=== PATIENT | male | born 1975 | race Caucasian/White ===

== ENCOUNTER 2018-06-25 13:01 | Emergency (ER) | payer BC, OTHER ==
[~2018-06-25] VITALS: Ht 172.7 cm; Wt 90.7 kg
--- OUTSIDE RECORDS SUMMARY | 2018-06-25 13:07 | XMS REPORT ---
Author Author MITCH MEEKS [facility] Address [address] [place] [address] Care Team Providers Care Entry Level Programmer Name Role Phone MITCH MEEKS Unavailable PROBLEMS Type Condition ICD9-CM Code [id number] Code Onset Dates Condition Status SNOMED Code Problem Anxiety disorder, unspecified F41.9 Active 563467527 Problem Eating disorder F50.9 Active 86898544 Problem Type 2 diabetes mellitus without complication, without long-term current use of insulin E11.9 Active 023797178 Problem Bipolar affective disorder, depressed, severe, with psychotic behavior F31.5 Active 016007041 Problem Bipolar 1 disorder, mixed F31.60 Active 62168071 ALLERGIES No Information ENCOUNTERS Encounter Location Date Diagnosis [facility] [address] [id number] [id number] Jun, [place] [address] [facility] [address] [id number], [place] [id number] Jun, [facility] [address] [id number] [id number] Jun, [place] [address] [address] [facility] [address] [id number][place] [id number] Jun, [address] [id number][place] [id number] Jun, Eating disorder F50.9 and Bipolar affective disorder, depressed, severe, with psychotic behavior F31.5 [facility] [id number] [place] [id number]- [address]807 Jun, [facility] [address] [id number][place] [id number] Jun, Bipolar 1 disorder, mixed F31.60 [facility] [id number] [place] [address]- 8245 May, Bipolar affective disorder, depressed, severe, with psychotic behavior F31.5 ; Anxiety disorder, unspecified F41.9 and Eating disorder F50.9 [facility] [address] [facility] [address] [id number][place] [id number] May, Gastroenteritis K52.9 [facility] [address] [place] [id number] May, BMI 45.0-49.9, adult Z68.42 ; Bipolar 1 disorder, mixed F31.60 and Type 2 diabetes mellitus without complication, without long-term current use of insulin E11.9 [facility] [address] [facility] [address] [id number], [place] [id number] Apr, [facility] [address] [place] [address] [id number] Apr, [facility] [place] [id number] [place] [address] [id number] Apr, BMI 50.0-59.9, adult Z68.43 ; Type 2 diabetes mellitus without complication, without long-term current use of insulin E11.9 and Bipolar 1 disorder, mixed F31.60 [facility] [address] [place] [address] [id number] Apr, Bipolar 1 disorder, mixed F31.60 [facility] [address] [place] [address] [id number] Apr, BMI 50.0-59.9, adult Z68.43 ; Dehydration E86.0 and Bipolar 1 disorder, mixed F31.60 [facility] [address] [place] [address] [id number] Mar, BMI 50.0-59.9, adult Z68.43 ; Physical examination of employee Z02.89 ; Type 2 diabetes mellitus without complication, without long-term current use of insulin E11.9 and Chest discomfort R07.89 [facility] [id number] [place] [address]- 6901 Oct, [facility] [address] [address] Oct, [facility] [place] [facility] [address] [id number] [place] [address]- 9884 Feb, [facility] [place] [facility] [address] [id number] [place] [address] Feb, [facility] [place] [facility] [address] [id number] [place] [address]- 4043 Jan, [facility] [place] [facility] [address] [id number] [place] [address]- 1653 Jan, [facility] [place] [facility] [address] [id number] [place] [address]- 9872 Jan, [facility] [place] [facility] [address] [id number] [place] [address]- 4505 Jan, [facility] [place] [facility] [address] [id number] [place] [address]- 1468 Jan, [facility] [place] [facility] [address] [id number] [place] [address]- 8171 Jan, [facility] [place] [facility] [address] [id number] [place] [address]- 5315 Jan, [facility] [place] [facility] [address] [id number] [place] [address]- 1050 Jan, [facility] [place] [facility] [address] [id number] [place] [address]- 2471 Jan, [facility] [place] [facility] [address] [id number] [place] [address]- 7431 Jan, [facility] [place] [facility] [address] [id number] [place] [address]- 6511 Jan, [facility] [place] [facility] [address] [id number] [place] [address]- 7957 Jan, [facility] [place] [facility] [address] [id number] [place] [address]- 5921 Jan, [facility] [place] [facility] [address] [id number] [place] [address]- 8537 Dec, [facility] [place] [facility] [address] [id number] [place] [address]- 6540 Dec, [facility] [place] [facility] [address] [id number] [place] [address]- 5543 Dec, [facility] [place] [facility] [address] [id number] [place] [address]- 8973 Dec, [facility] [place] [facility] [address] [id number] [place] [address]- 3338 Aug, [facility] [place] [facility] [address] [id number] [place]- 3981 Aug, [facility] [place] [facility] [address] [id number] [place] [address]- 8909 Jul, [facility] [place] [facility] [address] [id number] [place] [address]- 6158 Jul, [facility] [place] [facility] [address] [id number] [place] [address]- 5023 Jun, [facility] [place] [facility] [address] [id number] [place] [address]- 8189 Jun, [facility] [place] [facility] [address] [id number] [place] [address]- 3378 May, [facility] [place] [facility] [address] [id number] [place] [address]- 1508 May, [facility] [place] [facility] [address] [id number] [place] [address]- 2545 Jan, [facility] [place] [facility] [address] [id number] [place] [address]- 3519 14 Dec, 2012 [facility] [place] [facility] [address] [id number] [place] [address]- 5247 07 Dec, 2012 [facility] [place] [facility] [address] [id number] [place] [address]- 9098 Dec, [facility] [address] [facility] [id number] [place] [address]- [address] Dec, [facility] [address] [facility] [id number] [place] [address]- 9741 November, [facility] [address] [facility] [id number] [place]- [address] Oct, IMMUNIZATIONS No Known Immunizations SOCIAL HISTORY Never Assessed REASON FOR VISIT Medication refill request PLAN OF CARE VITAL SIGNS MEDICATIONS Unknown Medications RESULTS No Results PROCEDURES No Known procedures INSTRUCTIONS MEDICATIONS ADMINISTERED No Known Medications MEDICAL (GENERAL) HISTORY Type Description Date Medical History type II diabetes Medical History hypertension Medical History hyperlipidemia Medical History bipolar disorder Medical History Eating disoder-Binge eats Medical History depression Medical History Dysmetabolic Syndrome X Medical History Other testicular hypofunction Medical History Generalized hyperhidrosis Medical History Decreased libido Medical History Essential hypertension, benign Medical History Unspecified sleep apnea Medical History Morbid obesity Medical History Elevated blood pressure reading without diagnosis of hypertension Surgical History appendectomy 2010 Surgical History right ankle orthoscopy 1993 Surgical History stress test /heart cath ( clr per pt) 2016 Hospitalization History surgeries Hospitalization History Eating disorder-treatment center
--- OUTSIDE RECORDS SUMMARY | 2018-06-25 13:07 | XMS REPORT ---
Author Author OBED ACEVES Organization [facility] Address [address] [place] [address] Care Team Providers Care Band Cutter Name Role Phone OBED ACEVES Unavailable PROBLEMS Type Condition ICD9-CM Code TBJ66-IC Code Onset Dates Condition Status SNOMED Code Problem Anxiety disorder, unspecified F41.9 Active 686218992 Problem Eating disorder F50.9 Active 38947306 Problem Type 2 diabetes mellitus without complication, without long-term current use of insulin E11.9 Active 466231233 Problem Bipolar affective disorder, depressed, severe, with psychotic behavior F31.5 Active 580964621 Problem Bipolar 1 disorder, mixed F31.60 Active 35151782 ALLERGIES No Information ENCOUNTERS Encounter Location Date Diagnosis [facility] [address] [address] [id number] [place] [id number] Jun, [facility] [id number] [place] [address] [id number] Jun, [facility] [id number], [place] [id number] Jun, Bipolar 1 disorder, mixed F31.60 [facility] [address]005[address] [id number] Jun, [facility] [id number] [place] [address] Jun, [facility] [id number] [place] [id number] Jun, Eating disorder F50.9 and Bipolar affective disorder, depressed, severe, with psychotic behavior F31.5 [facility] [address] [id number] [address]- 1416 Jun, [id number] [place] [address] [id number] Jun, Bipolar 1 disorder, mixed F31.60 [facility] [address] [place] [address] [id number] May, Bipolar affective disorder, depressed, severe, with psychotic behavior F31.5 ; Anxiety disorder, unspecified F41.9 and Eating disorder F50.9 [facility] [address] [facility] [id number] [place] [id number] May, Gastroenteritis K52.9 [facility] [place] [id number] [place] [address] [id number] May, BMI 45.0-49.9, adult Z68.42 ; Bipolar 1 disorder, mixed F31.60 and Type 2 diabetes mellitus without complication, without long-term current use of insulin E11.9 [facility] [address] [facility] [id number] [place] [id number] Apr, [facility] [place] [id number] [place] [address] [id number] Apr, [facility] [place] [id number] [place] [address] [id number] Apr, BMI 50.0-59.9, adult Z68.43 ; Type 2 diabetes mellitus without complication, without long-term current use of insulin E11.9 and Bipolar 1 disorder, mixed F31.60 [address] [place] [address] [id number] Apr, Bipolar 1 disorder, mixed F31.60 [facility] [place] [address] [place] [address] [id number] Apr, BMI 50.0-59.9, adult Z68.43 ; Dehydration E86.0 and Bipolar 1 disorder, mixed F31.60 [facility] [place] [address] [id number] Mar, BMI 50.0-59.9, adult Z68.43 ; Physical examination of employee Z02.89 ; Type 2 diabetes mellitus without complication, without long-term current use of insulin E11.9 and Chest discomfort R07.89 [facility] [address] [id number] [place] [address]- 6[address] 14 Oct, 2014 [facility] [place] [facility] [address] [id number] [place] [address]- 4835 Oct, [facility] [place] [facility] [address] [id number] [place] [address]- 7396 Feb, [facility] [place] [facility] [address] [id number] [place] [address]- 1320 Feb, [facility] [place] [facility] [address] [id number] [place] [address]- 3750 Jan, [facility] [place] [facility] [address] [id number] [place] [address]- 2036 Jan, [facility] [place] [facility] [address] [id number] [place] [address]- 4575 Jan, [facility] [place] [facility] [address] [id number] [place] [address]- 0357 Jan, [facility] [place] [facility] [address] [id number] [place] [address]- 6377 Jan, [facility] [place] [facility] [address] [id number] [place] [address]- 0849 Jan, [facility] [place] [facility] [address] [id number] [place] [address]- 5604 Jan, [facility] [place] [facility] [address] [id number] [place] [address]- 7134 Jan, [facility] [place] [facility] [address] [id number] [place] [address]- 9026 Jan, [facility] [place] [facility] [address] [id number] [place] [address]- 0324 Jan, [facility] [place] [facility] [address] [id number] [place] [address]- 6613 Jan, [facility] [place] [facility] [address] [id number] [place] 9575 Jan, [facility] [place] [facility] [address] [id number] [place] [address]- 4913 Jan, [facility] [place] [facility] [address] [id number] [place] [address]- 9572 Dec, [facility] [place] [facility] [address] [id number] [place] [address]- 3506 Dec, [facility] [place] [facility] [address] [id number] [place] [address]- 2091 Dec, [facility] [place] [facility] [address] [id number] [place] [address]- 6940 Dec, [facility] [place] [facility] [address] [id number] [place] [address]- 8735 Aug, [facility] [place] [facility] [address] [id number] [place] [address]- 8175 Aug, [facility] [place] [facility] [address] [id number] [place] [address]- 2228 Jul, [facility] [place] [facility] [address] [id number] [place] [address]- 6659 Jul, [facility] [place] [facility] [address] [id number] [place] [address]- 5680 Jun, [facility] [place] [facility] [address] [id number] [place] [address]- 4844 Jun, [facility] [place] [facility] [address] [id number] [place] [address]- 8244 May, [facility] [place] [facility] [address] [id number] [place] [address]- 2055 May, [facility] [place] [facility] [address] [id number] [place] [address]- 7911 Jan, [facility] [place] [facility] [address] [id number] [place] [address]- 3229 Dec, [facility] [place] [facility] [address] [id number] [place] [address]- 2546 Dec, [facility] [address] [facility] [id number] [place] [address]- 2546 Dec, [facility] [address] [facility] [id number] [place] [address]- 2546 Dec, [facility] [address] [facility] [id number] [place] [address]- 2546 November, [facility] [address] [facility] [id number] [place] [address]- 2546 Oct, IMMUNIZATIONS No Known Immunizations SOCIAL HISTORY Never Assessed REASON FOR VISIT Intake PLAN OF CARE Activity Details Follow Up 1 Week Reason: Follow-up VITAL SIGNS MEDICATIONS Medication Instructions Dosage Frequency Start Date End Date Duration Status Seroquel 25 MG Orally at bedtime 1 tablet May, 30 day(s) Active [place] Carbonate 150 MG Orally Once a day at HS 4 capsule Active Probiotic - as directed Active Sertraline HCl 100 MG Orally Once a day 0.5 tablet 24h Apr, Active Trulicity 0.75 MG/0.5ML Subcutaneous once weekly as directed Apr, Active Synjardy XR 10-1000 MG Orally Once a day 1 tablet with breakfast 24h 30 day(s) Active RESULTS No Results PROCEDURES Procedure Date Ordered Result Body Site Psychotherapy, patient &/family, with E&M, 30 minutes, new patient Jun 13, 2018 INSTRUCTIONS MEDICATIONS ADMINISTERED No Known Medications MEDICAL [...]
--- OUTSIDE RECORDS SUMMARY | 2018-06-25 13:07 | XMS REPORT ---
Author Author ELIZABETH COE Organization [facility] Address [address] [place] [address] Care Team Providers Care Travelift Operator Name Role Phone ELIZABETH COE Unavailable PROBLEMS Type Condition ICD9-CM Code [id number] Code Onset Dates Condition Status SNOMED Code Problem Anxiety disorder, unspecified F41.9 Active 642590498 Problem Eating disorder F50.9 Active 60825699 Problem Type 2 diabetes mellitus without complication, without long-term current use of insulin E11.9 Active 009378230 Problem Bipolar affective disorder, depressed, severe, with psychotic behavior F31.5 Active 308653091 Problem Bipolar 1 disorder, mixed F31.60 Active 81590639 ALLERGIES No Information ENCOUNTERS Encounter Location Date Diagnosis [facility] [employer] [facility] [id number], [place] [id number] Jun, [id number] [place] [address] [id number] Jun, [facility] [address] [id number] [address]- 1615 May, Bipolar affective disorder, depressed, severe, with psychotic behavior F31.5 ; Anxiety disorder, unspecified F41.9 and Eating disorder F50.9 [place] [address] [facility] [id number], [place] [id number] May, Gastroenteritis K52.[address] [id number] [place] [address] May, BMI 45.0-49.9, adult Z68.42 ; Bipolar 1 disorder, mixed F31.60 and Type 2 diabetes mellitus without complication, without long-term current use of insulin E11.9 [facility] [address] [facility] [id number], [place] [id number] Apr, [address] [place] [id number] [id number] Apr, [facility] [place] [address] [place] [address] [id number] [address] Apr, BMI 50.0-59.9, adult Z68.43 ; Type 2 diabetes mellitus without complication, without long-term current use of insulin E11.9 and Bipolar 1 disorder, mixed F31.60 [facility] [id number] [place] [address] [id number] Apr, Bipolar 1 disorder, mixed F31.60 [facility] [id number] [place] [address] [id number] Apr, BMI 50.0-59.9, adult Z68.43 ; Dehydration E86.0 and Bipolar 1 disorder, mixed F31.60 [facility] [id number] [place] [address] [id number] Mar, BMI 50.0-59.9, adult Z68.43 ; Physical examination of employee Z02.89 ; Type 2 diabetes mellitus without complication, without long-term current use of insulin E11.9 and Chest discomfort R07.89 [facility] [id number] [place] [address] 05537- 9052 Oct, [facility] [id number] [place] [address] 37739- 7323 Oct, [facility] [id number] [place] [address] 87080- 4687 Feb, [facility] [id number] [place] [address] 48160- 4788 Feb, [facility] [id number] [place] [address] 177431- 4459 Jan, [facility] [address] 605217- 9976 Jan, [facility] [id number] [place] [address] 27783- 7418 Jan, [facility] [address] [facility] [place] [address]- 9994 Jan, [facility] [place] [facility] [address] [id number] [place] [address]- 0520 Jan, [facility] [place] [facility] [address] [id number] [place] [address]- 0186 Jan, [facility] [place] [facility] [address] [id number] [place] [address]- 5073 Jan, [facility] [place] [facility] [address] [id number] [place] [address]- 4889 Jan, [facility] [place] [facility] [address] [id number] [place] [address]- 3764 Jan, [facility] [place] [facility] [address] [id number] [place] [address]- 3496 Jan, [facility] [place] [facility] [address] [id number] [place] [address]- 0979 Jan, [facility] [place] [facility] [address] [id number] [place] [address]- 9090 Jan, [facility] [place] [facility] [address] [id number] [place] [address]- 1220 Jan, [facility] [place] [facility] [address] [id number] [place] [address]- 5653 Dec, [facility] [place] [facility] [address] [id number] [place] [address]- 8632 Dec, [facility] [place] [facility] [address] [id number] [place] [address]- 2274 Dec, [facility] [place] [facility] [address] [id number] [place] [address]- 9289 Dec, [facility] [place] [facility] [address] [id number] [place] [address]- 3371 Aug, [facility] [place] [facility] [address] [id number] [place] [address]- 1042 Aug, [facility] [address] [id number], [place] [address]- 5411 Jul, [facility] [address]00565100[place], [place] [address]- 9266 Jul, [facility] [address] [id number], [place] [address]- 2087 Jun, [facility] [address]00565100[place], [place] [address]- 5524 Jun, [facility] [address]- 4458 May, [facility] [address]00565100[place]- 2058 May, [facility] [address]65100[place], [place] [address]- 6725 Jan, [facility] [address]65100[place], [place] [address]- 4601 Dec, [facility] [address]65100[place]- 6554 Dec, [facility] [address]65100[place], [place] [address]- 0922 Dec, [facility] [address] [id number] [address] Dec, [facility] [id number] [address] November, [facility] [id number] [id number] Oct, IMMUNIZATIONS No Known Immunizations SOCIAL HISTORY Never Assessed REASON FOR VISIT Intake PLAN OF CARE Activity Details Follow Up referred to [facility] Reason: VITAL SIGNS MEDICATIONS Medication Instructions Dosage Frequency Start Date End Date Duration Status Seroquel 25 MG Orally at bedtime 1 tablet May, 30 day(s) Active Trulicity 0.75 MG/0.5ML Subcutaneous once weekly as directed Apr, Active Probiotic - as directed Active Sertraline HCl 100 MG Orally Once a day 0.5 tablet 24h Apr, Active Dunlo Carbonate 150 MG Orally Once a day at HS 4 capsule Active Synjardy XR 10-1000 MG Orally Once a day 1 tablet with breakfast 24h 30 day(s) Active RESULTS No Results PROCEDURES Procedure Date Ordered Result Body Site Psych diagnostic evaluation, established patient Jun 07, 2018 INSTRUCTIONS MEDICATIONS ADMINISTERED No Known Medications [...]
--- OUTSIDE RECORDS SUMMARY | 2018-06-25 13:07 | XMS REPORT ---
Author Author MITCH MEEKS [facility] Address [address] [place] [address] Care Team Providers Care Tunnel Elastic Operator Zigzag Name Role Phone MITCH MEEKS Unavailable PROBLEMS Type Condition ICD9-CM Code [id number] Code Onset Dates Condition Status SNOMED Code Problem Anxiety disorder, unspecified F41.9 Active 450653659 Problem Eating disorder F50.9 Active 40331466 Problem Type 2 diabetes mellitus without complication, without long-term current use of insulin E11.9 Active 605576057 Problem Bipolar affective disorder, depressed, severe, with psychotic behavior F31.5 Active 525312597 Problem Bipolar 1 disorder, mixed F31.60 Active [id number] ALLERGIES No Information ENCOUNTERS Encounter Location Date Diagnosis [facility] [address] [id number] [place] [id number] Jun, [address] [address] [address] [facility] [address] [id number] [place] [id number] Jun, [facility] [address] [id number] [id number] Jun, [address] [address] [facility] [address] [id number] [place] [id number] Jun, [address] [id number] [place] [id number] Jun, Eating disorder F50.9 and Bipolar affective disorder, depressed, severe, with psychotic behavior F31.5 [facility] [address] [place] [id number]- 3982 Jun, [facility] [address] [id number] [place] [id number] Jun, Bipolar 1 disorder, mixed F31.60 [facility] [id number] [place] [address]- 5964 May, Bipolar affective disorder, depressed, severe, with psychotic behavior F31.5 ; Anxiety disorder, unspecified F41.9 and Eating disorder F50.9 [facility] [address] [facility] [address] [id number] [place] [id number] May, Gastroenteritis K52.9 [facility] [address] [place] [address] [id number] May, BMI 45.0-49.9, adult Z68.42 ; Bipolar 1 disorder, mixed F31.60 and Type 2 diabetes mellitus without complication, without long-term current use of insulin E11.9 [facility] [address] [facility] [address] [id number] [place] [id number] Apr, [facility] [address] [place] [id number] Apr, [facility] [place] [id number] [place] [id number] Apr, BMI 50.0-59.9, adult Z68.43 ; Type 2 diabetes mellitus without complication, without long-term current use of insulin E11.9 and Bipolar 1 disorder, mixed F31.60 [facility] [address] [place] [address] [id number] Apr, Bipolar 1 disorder, mixed F31.60 [facility] [address] [place] [address] [id number] Apr, BMI 50.0-59.9, adult Z68.43 ; Dehydration E86.0 and Bipolar 1 disorder, mixed F31.60 [facility] [address] [place] [address] [id number] Mar, BMI 50.0-59.9, adult Z68.43 ; Physical examination of employee Z02.89 ; Type 2 diabetes mellitus without complication, without long-term current use of insulin E11.9 and Chest discomfort R07.89 [facility] [id number] [place] [address]- 5617 Oct, [facility] [address] [address] Oct, [facility] [place] [facility] [address] [id number] [place] [address] Feb, [facility] [place] [facility] [address] [id number] [place] [address] Feb, [facility] [place] [facility] [address] [id number] [place] [address]- 4184 Jan, [facility] [place] [facility] [address] [id number] [place] [address]- 7556 Jan, [facility] [place] [facility] [address] [id number] [place] [address]- 4168 Jan, [facility] [place] [facility] [address] [id number] [place] [address]- 4665 Jan, [facility] [place] [facility] [address] [id number] [place] [address]- 3105 Jan, [facility] [place] [facility] [address] [id number] [place] [address]- 4294 Jan, [facility] [place] [facility] [address] [id number] [place] [address]- 1817 Jan, [facility] [place] [facility] [address] [id number] [place] [address]- 5451 Jan, [facility] [place] [facility] [address] [id number] [place] [address]- 0587 Jan, [facility] [place] [facility] [address] [id number] [place] [address]- 1129 Jan, [facility] [place] [facility] [address] [id number] [place] [address]- 4768 Jan, [facility] [place] [facility] [address] [id number] [place] [address]- 7177 Jan, [facility] [place] [facility] [address] [id number] [place] [address]- 1088 Jan, [facility] [place] [facility] [address] [id number] [place] [address]- 0938 Dec, [facility] [place] [facility] [address] [id number] [place] [address]- 3088 Dec, [facility] [place] [facility] [address] [id number] [place] [address]- 8185 Dec, [facility] [place] [facility] [address] [id number] [place] [address]- 4266 Dec, [facility] [place] [facility] [address] [id number] [place] [address]- 4683 Aug, [facility] [place] [facility] [address] [id number] [place] [address] Aug, [facility] [place] [facility] [address] [id number] [place] [address]- 3663 Jul, [facility] [place] [facility] [address] [id number] [place] [address]- 4631 Jul, [facility] [place] [facility] [address] [id number] [place] [address]- 5773 Jun, [facility] [place] [facility] [address] [id number] [place] [address]- 1844 Jun, [facility] [place] [facility] [address] [id number] [place] [address]- 9107 May, [facility] [place] [facility] [address] [id number] [place] [address]- 9451 May, [facility] [place] [facility] [address] [id number] [place] [address]- 2542 Jan, [facility] [place] [facility] [address] [id number] [place] [address]- 3960 14 Dec, 2012 [facility] [place] [facility] [address] [id number] [place] [address]- 2897 07 Dec, 2012 [facility] [place] [facility] [address] [id number] [place] [address]- 9021 Dec, [facility] [address] [facility] [id number] [place] [address]- 6[address] Dec, [facility] [address] [facility] [id number] [place] [address]- 3066 November, [facility] [address] [facility] [id number] [place] [address]- 49[address] Oct, IMMUNIZATIONS No Known Immunizations SOCIAL HISTORY Never Assessed REASON FOR VISIT Medication refill PLAN OF CARE VITAL SIGNS MEDICATIONS Medication Instructions Dosage Frequency Start Date End Date Duration Status Trulicity 0.75 MG/0.5ML Subcutaneous once weekly as directed Apr, Active RESULTS No Results PROCEDURES No Known procedures [...]
--- OUTSIDE RECORDS SUMMARY | 2018-06-25 13:07 | XMS REPORT ---
Author Author MITCH MEEKS [facility] Address [address] [place] [address] Care Team Providers Care Seismic Interpreter Name Role Phone MITCH MEEKS Unavailable PROBLEMS Type Condition ICD9-CM Code [id number] Code Onset Dates Condition Status SNOMED Code Problem Anxiety disorder, unspecified F41.9 Active 468364340 Problem Eating disorder F50.9 Active 63803991 Problem Type 2 diabetes mellitus without complication, without long-term current use of insulin E11.9 Active 800558192 Problem Bipolar affective disorder, depressed, severe, with psychotic behavior F31.5 Active 937495970 Problem Bipolar 1 disorder, mixed F31.60 Active 35193743 ALLERGIES No Information ENCOUNTERS Encounter Location Date Diagnosis [facility] [address] [id number] [id number] Jun, [facility] [id number] [place] [id number] Jun, [address] [place] [id number] Jun, Bipolar 1 disorder, mixed F31.60 [facility] [address] [id number] Jun, [facility] [address] [id number] [id number] Jun, [facility] [address] [id number], [place] [id number] Jun, Eating disorder F50.9 and Bipolar affective disorder, depressed, severe, with psychotic behavior F31.5 [facility] [address] [address] [id number] [id number] Jun, [facility] [id number] [place] [address] [id number] Jun, Bipolar 1 disorder, mixed F31.60 [facility] [address] [place] [address]- 4763 May, Bipolar affective disorder, depressed, severe, with psychotic behavior F31.5 ; Anxiety disorder, unspecified F41.9 and Eating disorder F50.9 [facility] [address] [id number] May, Gastroenteritis K52.9 [facility] [place] [id number] [place] [address] [id number] May, BMI 45.0-49.9, adult Z68.42 ; Bipolar 1 disorder, mixed F31.60 and Type 2 diabetes mellitus without complication, without long-term current use of insulin E11.9 [facility] [address] [id number] Apr, [facility] [place] [id number] [place] [address] [id number] Apr, [facility] [place] [id number] [place] [address] [id number] Apr, BMI 50.0-59.9, adult Z68.43 ; Type 2 diabetes mellitus without complication, without long-term current use of insulin E11.9 and Bipolar 1 disorder, mixed F31.60 [facility] [place] [address] [id number] [place] [address] [id number] Apr, Bipolar 1 disorder, mixed F31.60 [facility] [address] [place] [address] [id number] Apr, BMI 50.0-59.9, adult Z68.43 ; Dehydration E86.0 and Bipolar 1 disorder, mixed F31.60 [facility] [place] [id number] [place] [address] [id number] Mar, BMI 50.0-59.9, adult Z68.43 ; Physical examination of employee Z02.89 ; Type 2 diabetes mellitus without complication, without long-term current use of insulin E11.9 and Chest discomfort R07.89 [facility] [id number] [place] [address]- 9474 Oct, [facility] [place] [facility] [address] [id number] [place] [address]- 9213 Oct, [facility] [place] [facility] [address] [id number] [place] [address]- 4966 Feb, [facility] [place] [facility] [address] [id number] [place] [address]- 4795 Feb, [facility] [place] [facility] [address] [id number] [place] [address]- 1029 Jan, [facility] [place] [facility] [address] [id number] [place] [address]- 1289 Jan, [facility] [place] [facility] [address] [id number] [place] [address]- 7606 Jan, [facility] [place] [facility] [address] [id number] [place] [address]- 9858 Jan, [facility] [place] [facility] [address] [id number] [place] [address]- 7421 Jan, [facility] [place] [facility] [address] [id number] [place] [address]- 6116 Jan, [facility] [place] [facility] [address] [id number] [place] [address]- 5391 Jan, [facility] [place] [facility] [address] [id number] [place] [address]- 4724 Jan, [facility] [place] [facility] [address] [id number] [place] [address]- 7058 Jan, [facility] [place] [facility] [address] [id number] [place] [address]- 4932 Jan, [facility] [place] [facility] [address] [id number] [place] [address]- 1469 Jan, [facility] [place] [facility] [address] [id number] [place] [address]- 9568 Jan, [facility] [place] [facility] [address] [id number] [place] [address]- 5930 Jan, [facility] [place] [facility] [address] [id number] [place] [address]- 8940 Dec, [facility] [place] [facility] [address] [id number] [place] [address]- 2089 Dec, [facility] [place] [facility] [address] [id number] [place] [address]- 0962 Dec, [facility] [place] [facility] [address] [id number] [place] [address]- 9629 Dec, [facility] [place] [facility] [address] [id number] [place] [address]- 6693 Aug, [facility] [place] [facility] [address] [id number] [place] [address]- 8001 Aug, [facility] [place] [facility] [address] [id number] [place] [address]- 7847 Jul, [facility] [place] [facility] [address] [id number] [place] [address]- 9954 Jul, [facility] [place] [facility] [address] [id number] [place] [address]- 1123 Jun, [facility] [place] [facility] [address] [id number] [place] [address]- 2509 Jun, [facility] [place] [facility] [address] [id number] [place] [address]- 3104 May, [facility] [place] [facility] [address] [id number] [place] [address]- 7332 May, [facility] [place] [facility] [address] [id number] [place] [address]- 8078 Jan, [facility] [place] [facility] [address] [id number] [place] [address]- 4280 Dec, [facility] [place] [facility] [address] [id number] [place] [address]- 0012 Dec, [facility] [address] [facility] [id number] [place] [address]- 2546 Dec, [facility] [address] [facility] [id number] [address]- 2546 Dec, [facility] [address] [facility] [id number] [address]- 2546 November, [facility] [address] [facility] [id number] [address]- 2546 Oct, IMMUNIZATIONS No Known Immunizations SOCIAL HISTORY Never Assessed REASON FOR VISIT med refill PLAN OF CARE VITAL SIGNS MEDICATIONS Medication Instructions Dosage Frequency Start Date End Date Duration Status Sertraline HCl 100 mg Orally Once a day 0.5 tablet 24h Apr, 30 days Active RESULTS No Results PROCEDURES No Known [...]
--- OUTSIDE RECORDS SUMMARY | 2018-06-25 13:07 | XMS REPORT ---
Author Author MITCH MEEKS [facility] Address [address] [place] [address] Care Team Providers Care Harmonic Analyst Name Role Phone MITCH MEEKS Unavailable PROBLEMS Type Condition ICD9-CM Code GNI68-DL Code Onset Dates Condition Status SNOMED Code Problem Anxiety disorder, unspecified F41.9 Active 600583010 Problem Eating disorder F50.9 Active 87225683 Problem Type 2 diabetes mellitus without complication, without long-term current use of insulin E11.9 Active 930923302 Problem Bipolar affective disorder, depressed, severe, with psychotic behavior F31.5 Active 011641484 Problem Bipolar 1 disorder, mixed F31.60 Active 68811606 ALLERGIES No Information ENCOUNTERS Encounter Location Date Diagnosis [facility] [address] [id number], [place] [id number] Jun, [place] [address] [address] [facility] [address] [id number], [place] [id number] Jun, [facility] [address] [id number], [place] [id number] Jun, [place] [address] [facility] [address] [id number], [place] [id number] Jun, [address] [address] [address] [id number], [place] [id number] Jun, Eating disorder F50.9 and Bipolar affective disorder, depressed, severe, with psychotic behavior F31.5 [facility] [address] [place] [id number]- 6318 Jun, [facility] [address] [id number], [place] [id number] Jun, Bipolar 1 disorder, mixed F31.60 [facility] [id number] [place] [address]- 9217 May, Bipolar affective disorder, depressed, severe, with psychotic behavior F31.5 ; Anxiety disorder, unspecified F41.9 and Eating disorder F50.9 [facility] [address] [facility] [address] [id number], [place] [id number] May, Gastroenteritis K52.9 [facility] [address] [place] [address] [id number] May, BMI 45.0-49.9, adult Z68.42 ; Bipolar 1 disorder, mixed F31.60 and Type 2 diabetes mellitus without complication, without long-term current use of insulin E11.9 [facility] [address] [facility] [address] [id number], [place] [id number] Apr, [facility] [address] [place] [address] [id number] Apr, [facility] [address] [id number] [place] [address] [id number] Apr, BMI 50.0-59.9, adult Z68.43 ; Type 2 diabetes mellitus without complication, without long-term current use of insulin E11.9 and Bipolar 1 disorder, mixed F31.60 [facility] [address] [place] [address] [id number] Apr, Bipolar 1 disorder, mixed F31.60 [facility] [address] [place] [address] [id number] Apr, BMI 50.0-59.9, adult Z68.43 ; Dehydration E86.0 and Bipolar 1 disorder, mixed F31.60 [facility] [address] [place] [address] [id number] Mar, BMI 50.0-59.9, adult Z68.43 ; Physical examination of employee Z02.89 ; Type 2 diabetes mellitus without complication, without long-term current use of insulin E11.9 and Chest discomfort R07.89 [facility] [id number] [place] [address] 450[address]- 3097 Oct, [facility] [address] [address]- 6774 Oct, [facility] [place] [facility] [address] [id number] [place] [address]- 0107 Feb, [facility] [place] [facility] [address] [id number] [place] 8[address] Feb, [facility] [place] [facility] [address] [id number] [place] [address]- 7984 Jan, [facility] [place] [facility] [address] [id number] [place] [address]- 8366 Jan, [facility] [place] [facility] [address] [id number] [place] [address]- 7319 Jan, [facility] [place] [facility] [address] [id number] [place] [address]- 0148 Jan, [facility] [place] [facility] [address] [id number] [place] [address]- 0403 Jan, [facility] [place] [facility] [address] [id number] [place] [address]- 2602 Jan, [facility] [place] [facility] [address] [id number] [place] [address]- 3355 Jan, [facility] [place] [facility] [address] [id number] [place] [address]- 6128 Jan, [facility] [place] [facility] [address] [id number] [place] [address]- 8481 Jan, [facility] [place] [facility] [address] [id number] [place] [address]- 8185 Jan, [facility] [place] [facility] [address] [id number] [place] [address]- 9531 Jan, [facility] [place] [facility] [address] [id number] [place] [address]- 0472 Jan, [facility] [place] [facility] [address] [id number] [place] [address]- 3265 Jan, [facility] [place] [facility] [address] [id number] [place] [address]- 2221 Dec, [facility] [place] [facility] [address] [id number] [place] [address]- 7564 Dec, [facility] [place] [facility] [address] [id number] [place] [address]- 2025 Dec, [facility] [place] [facility] [address] [id number] [place] [address]- 2222 Dec, [facility] [place] [facility] [address] [id number] [place] [address]- 8004 Aug, [facility] [place] [facility] [address] [id number] [place]- 3161 Aug, [facility] [place] [facility] [address] [id number] [place] [address]- 1652 Jul, [facility] [place] [facility] [address] [id number] [place] [address]- 9406 Jul, [facility] [place] [facility] [address] [id number] [place] [address]- 1875 Jun, [facility] [place] [facility] [address] [id number] [place] [address]- 4596 Jun, [facility] [place] [facility] [address] [id number] [place] [address]- 0429 May, [facility] [place] [facility] [address] [id number] [place] [address]- 0984 May, [facility] [place] [facility] [address] [id number] [place] [address]- 254 Jan, [facility] [place] [facility] [address] [id number] [place] [address]- 3158 14 Dec, 2012 [facility] [place] [facility] [address] [id number] [place] [address]- 0802 07 Dec, 2012 [facility] [place] [facility] [address] [id number] [place] [address]- 5421 Dec, [facility] [address] [facility] [id number] [place] [address]- 1068 Dec, [facility] [address] [facility] [id number] [place] [address]- 8551 November, [facility] [address] [facility] [id number] [place] [address]- 0050 Oct, IMMUNIZATIONS No Known Immunizations SOCIAL HISTORY Never Assessed REASON FOR VISIT PLAN OF CARE VITAL SIGNS MEDICATIONS Unknown [...]
--- OUTSIDE RECORDS SUMMARY | 2018-06-25 13:08 | XMS REPORT ---
Author Author MITCH MEEKS [facility] Address [address] [place] [address] Care Team Providers Care Reporting Lead Name Role Phone MITCH MEEKS Unavailable PROBLEMS Type Condition ICD9-CM Code PZC48-IS Code Onset Dates Condition Status SNOMED Code Problem Bipolar 1 disorder, mixed F31.60 Active 68530953 Problem Type 2 diabetes mellitus without complication, without long-term current use of insulin E11.9 Active [id number] ALLERGIES No Information ENCOUNTERS Encounter Location Date Diagnosis [id number] [place] [id number] Apr, [address] [id number] Apr, Bipolar 1 disorder, mixed F31.60 [place] [id number] [place] [id number] Apr, BMI 50.0-59.9, adult Z68.43 ; Dehydration E86.0 and Bipolar 1 disorder, mixed F31.60 [id number] [place] [id number] Mar, BMI 50.0-59.9, adult Z68.43 ; Physical examination of employee Z02.89 ; Type 2 diabetes mellitus without complication, without long-term current use of insulin E11.9 and Chest discomfort R07.89 [address] [address] [id number] [place] [address] Oct, [place] [address] [address] Oct, [place] [address] [address] Feb, [place] [address] [address] Feb, [facility] [place] [facility] [address] [id number] [place] [address] Jan, [facility] [place] [facility] [address] [id number] [place] [address] Jan, [facility] [place] [facility] [address] [id number] [place] [address] Jan, [facility] [place] [facility] [address] [id number] [place] [address] Jan, [facility] [place] [facility] [address] [id number] [place] [address] Jan, [facility] [place] [facility] [address] [id number] [place] [address] 3[address] Jan, [facility] [place] [facility] [address] [id number] [place] [address] 3[address] Jan, [facility] [place] [facility] [address] [id number] [place] [address] Jan, [facility] [place] [facility] [address] [id number] [place] [address] 8587 Jan, [facility] [place] [facility] [address] [id number] [place] [address]- 8682 Jan, [facility] [place] [facility] [address] [id number] [place] [address] 0204 Jan, [facility] [place] [facility] [address] [id number] [place] [address] 2668 Jan, [facility] [place] [facility] [address] [id number] [place] [address]- 6580 Jan, [facility] [place] [facility] [address] [id number] [place] [address]- 8838 Dec, [facility] [place] [facility] [address] [id number] [place] [address] Dec, [facility] [place] [facility] [address] [id number] [place] [address]- 6367 Dec, [facility] [address] [id number] [place] [address]- 95[address] Dec, [facility] [place] [facility] [address] [id number] [place] [address] 9930 Aug, [facility] [place] [facility] [address] [id number] [place] [address]- 5566 Aug, [facility] [place] [facility] [address] [id number] [place] [address]- 6263 Jul, [facility] [place] [facility] [address] [id number] [place] [address]- 1748 Jul, [facility] [place] [facility] [address] [id number] [place] [address]- 1479 Jun, [facility] [place] [facility] [address] [id number] [place] [address]- 457[address] Jun, [facility] [place] [facility] [address] [id number] [place] [address]- 3085 May, [facility] [place] [facility] [address] [id number] [place] [address]- 8757 May, [facility] [place] [facility] [address] [id number] [place] [address]- 4658 Jan, [facility] [place] [facility] [address] [id number] [place] [address]- 4855 Dec, [facility] [place] [facility] [address] [id number] [place] [address]- 3504 Dec, [facility] [place] [facility] [address] [id number] [place] [address]- 0333 Dec, [facility] [place] [facility] [address] [id number] [place] [address]- 1780 Dec, [facility] [place] [facility] [address] [id number] [place] [address]- 44[address] November, [facility] [address] [facility] [id number] [place] [address] Oct, IMMUNIZATIONS No Known Immunizations SOCIAL HISTORY Never Assessed REASON FOR VISIT phone call PLAN OF CARE VITAL SIGNS MEDICATIONS Medication Instructions Dosage Frequency Start Date End Date Duration Status [place] Carbonate 150 MG Orally Once a day at HS 4 capsule Active Trulicity 0.75 MG/0.5ML Subcutaneous once weekly [...]
--- OUTSIDE RECORDS SUMMARY | 2018-06-25 13:08 | XMS REPORT | Continuity of Care Document ---
Author Author [facility] Address Unknown Phone Unavailable Allergies There is no data. Medications There is no data. Problems Date Dx Coded Attending Type Code Diagnosis Diagnosed By 11/05/2012 278.00 OBESITY 11/05/2012 784.0 headache 11/05/2012 799.81 changed sexual interest (libido): decreased 11/05/2012 278.00 OBESITY 11/05/2012 784.0 headache 11/05/2012 799.81 changed sexual interest (libido): decreased 11/05/2012 278.00 OBESITY 11/05/2012 784.0 headache 11/05/2012 799.81 changed sexual interest (libido): decreased 11/05/2012 SHERITA MICHEL DO 278.00 OBESITY 11/05/2012 MICHEL STEFF DEMARCOA K 784.0 headache 11/05/2012 MICHEL STEFF DEMARCOA K 799.81 changed sexual interest (libido): decreased 11/05/2012 MICHELE DÍAZ APRN 278.00 OBESITY 11/05/2012 MICHELE DÍAZ APRN 784.0 headache 11/05/2012 MICHELE DÍAZ APRN 799.81 changed sexual interest (libido): decreased 11/05/2012 MICHELE DÍAZ APRN 278.00 OBESITY 11/05/2012 MICHELE DÍAZ APRN 784.0 headache 11/05/2012 MICHELE DÍAZ APRN 799.81 changed sexual interest (libido): decreased 11/05/2012 STEFF MIHCEL DOA K 278.00 OBESITY 11/05/2012 MICHEL STEFF DEMARCOA K 784.0 headache 11/05/2012 MICHEL STEFF DEMARCOA K 799.81 changed sexual interest (libido): decreased 11/05/2012 MICHELE DÍAZ APRN 278.00 OBESITY 11/05/2012 DÍAZMICHELE GARZA APRN 784.0 headache 11/05/2012 MICHELE DÍAZ APRN 799.81 changed sexual interest (libido): decreased 11/05/2012 MICHEL DO, SHERITA K 278.00 OBESITY 11/05/2012 MICHEL DO, SHERITA K 784.0 headache 11/05/2012 MICHEL DO, SHERITA K 799.81 changed sexual interest (libido): decreased 11/05/2012 MICHEL DO, SHERITA K 278.00 OBESITY 11/05/2012 MICHEL DO, SHERITA K 784.0 headache 11/05/2012 MICHEL DO, SHERITA K 799.81 changed sexual interest (libido): decreased 11/05/2012 MICHEL DO, SHERITA K 278.00 OBESITY 11/05/2012 MICHEL DO, SHERITA K 784.0 headache 11/05/2012 MICHEL DO, SHERITA K 799.81 changed sexual interest (libido): decreased 12/21/2012 257.2 HYPOGONADISM 12/21/2012 STEFF MICHEL DOA K 257.2 HYPOGONADISM 12/21/2012 MICHELE DÍAZ APRN 257.2 HYPOGONADISM 12/21/2012 MICHELE DÍAZ APRN 257.2 HYPOGONADISM 12/21/2012 STEFF MICHEL DOA K 257.2 HYPOGONADISM 12/21/2012 MICHELE DÍAZ APRN 257.2 HYPOGONADISM 12/21/2012 STEFF MICHEL DOA K 257.2 HYPOGONADISM 12/21/2012 MICHEL DO SHERITA K 257.2 HYPOGONADISM 12/21/2012 MICHEL DO SHERITA K 257.2 HYPOGONADISM 06/07/2013 STEFF MICHEL DOA K 381.01 ACUTE SEROUS OTITIS MEDIA 06/07/2013 STEFF MICHEL DOA K 381.81 DYSFUNCTION OF EUSTACHIAN TUBE 06/07/2013 STEFF MICHEL DOA K 796.2 ELEVATED BLOOD PRESSURE READING WITHOUT DIAGNOSIS OF HYPERTENSION 06/07/2013 MICHELE DÍAZ APRN 381.01 ACUTE SEROUS OTITIS MEDIA 06/07/2013 MICHELE DÍAZ APRN 381.81 DYSFUNCTION OF EUSTACHIAN TUBE 06/07/2013 MICHELE DÍAZ APRN 796.2 ELEVATED BLOOD PRESSURE READING WITHOUT DIAGNOSIS OF HYPERTENSION 06/07/2013 MICHELE DÍAZ APRN 381.01 ACUTE SEROUS OTITIS MEDIA 06/07/2013 MICHELE DÍAZ APRN 381.81 DYSFUNCTION OF EUSTACHIAN TUBE 06/07/2013 MICHELE DÍAZ APRN 796.2 ELEVATED BLOOD PRESSURE READING WITHOUT DIAGNOSIS OF HYPERTENSION 06/07/2013 MICHEL DO, SHERITA K 381.01 ACUTE SEROUS OTITIS MEDIA 06/07/2013 MICHEL DO, SHERITA K 381.81 DYSFUNCTION OF EUSTACHIAN TUBE 06/07/2013 MICHEL DO, SHERITA K 796.2 ELEVATED BLOOD PRESSURE READING WITHOUT DIAGNOSIS OF HYPERTENSION 06/07/2013 MICHELE DÍAZ APRN 381.01 ACUTE SEROUS OTITIS MEDIA 06/07/2013 MICHELE DÍAZ APRN 381.81 DYSFUNCTION OF EUSTACHIAN TUBE 06/07/2013 MICHELE DÍAZ APRN 796.2 ELEVATED BLOOD PRESSURE READING WITHOUT DIAGNOSIS OF HYPERTENSION 06/07/2013 MICHEL DO, SHERITA K 381.01 ACUTE SEROUS OTITIS MEDIA 06/07/2013 MICHEL DO, SHERITA K 381.81 DYSFUNCTION OF EUSTACHIAN TUBE 06/07/2013 MICHEL DO, SHERITA K 796.2 ELEVATED BLOOD PRESSURE READING WITHOUT DIAGNOSIS OF HYPERTENSION 06/07/2013 MICHEL DO, SHERITA K 381.01 ACUTE SEROUS OTITIS MEDIA 06/07/2013 MICHEL DO, SHERITA K 381.81 DYSFUNCTION OF EUSTACHIAN TUBE 06/07/2013 MICHEL DO, SHERITA K 796.2 ELEVATED BLOOD PRESSURE READING WITHOUT DIAGNOSIS OF HYPERTENSION 06/07/2013 MICHEL DO, SHERITA K 381.01 ACUTE SEROUS OTITIS MEDIA 06/07/2013 MICHEL DO, SHERITA K 381.81 DYSFUNCTION OF EUSTACHIAN TUBE 06/07/2013 MICHEL DO, SHERITA K 796.2 ELEVATED BLOOD PRESSURE READING WITHOUT DIAGNOSIS OF HYPERTENSION 07/12/2013 MICHELE DÍAZ APRN 465.9 UPPER RESPIRATORY INFECTION 07/12/2013 MICHELE DÍAZ APRN 465.9 UPPER RESPIRATORY INFECTION 07/12/2013 MICHEL DO, SHERITA K 465.9 UPPER RESPIRATORY INFECTION 07/12/2013 MICHELE DÍAZ APRN 465.9 UPPER RESPIRATORY INFECTION 07/12/2013 MICHEL DO, SHERITA K 465.9 UPPER RESPIRATORY INFECTION 07/12/2013 MICHEL DO, SHERITA K 465.9 UPPER RESPIRATORY INFECTION 07/12/2013 MICHEL DO, SHERITA K 465.9 UPPER RESPIRATORY INFECTION 12/17/2013 MICHEL DO, SHERITA K 277.7 DYSMETABOLIC SYNDROME X 12/17/2013 MICHEL DO, SHERITA K 278.01 OBESITY MORBID 12/17/2013 MICHEL DO, SHERITA K 401.1 ESSENTIAL HYPERTENSION BENIGN 12/17/2013 MICHEL DO, SHERITA K 780.57 SLEEP APNEA 12/17/2013 MICHEL DO, SHERITA K 786.05 shortness of breath 12/17/2013 DÍAZ [employer]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, 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 J 277.7 DYSMETABOLIC SYNDROME X 12/17/2013 DÍAZ EX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, MICHELE J 278.01 OBESITY MORBID 12/17/2013 DÍAZ EX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, MICHELE J 401.1 ESSENTIAL HYPERTENSION BENIGN 12/17/2013 DÍAZ EX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, MICHELE J 780.57 SLEEP APNEA 12/17/2013 DÍAZ JEWEL, MICHELE J 786.05 shortness of breath 12/17/2013 MICHEL DO, SHERITA K 277.7 DYSMETABOLIC SYNDROME X 12/17/2013 MICHEL DO, SHERITA K 278.01 OBESITY MORBID 12/17/2013 MICHEL DO, SHERITA K 401.1 ESSENTIAL HYPERTENSION BENIGN 12/17/2013 MICHEL DO, SHERITA K 780.57 SLEEP APNEA 12/17/2013 MICHEL DO, SHERITA K 786.05 shortness of breath 12/17/2013 MICHEL DO, SHERITA K 277.7 DYSMETABOLIC SYNDROME X 12/17/2013 MICHEL DO, SHERITA K 278.01 OBESITY MORBID 12/17/2013 MICHEL DO, SHERITA K 401.1 ESSENTIAL HYPERTENSION BENIGN 12/17/2013 MICHEL DO, SHERITA K 780.57 SLEEP APNEA 12/17/2013 MICHEL DO, SHERITA K 786.05 shortness of breath 12/17/2013 MICHEL DO, SHERITA K 277.7 DYSMETABOLIC SYNDROME X 12/17/2013 MICHEL DO, SHERITA K 278.01 OBESITY MORBID 12/17/2013 MICHEL DO, SHERITA K 401.1 ESSENTIAL HYPERTENSION BENIGN 12/17/2013 MICHEL DO, SHERITA K 780.57 SLEEP APNEA 12/17/2013 MICHEL DO, SHERITA K 786.05 shortness of breath 01/07/2014 MICHELE DÍAZ APRN J 786.09 snoring 01/07/2014 MICHEL DO, SHERITA K 786.09 snoring 01/07/2014 MICHEL DO, SHERITA K 786.09 snoring 01/07/2014 MICHEL DO, SHERITA K 786.09 snoring 01/21/2014 SHERITA MICHEL DO V81.1 HYPERTENSION SCREENING 01/21/2014 SHERITA MICHEL DO V81.1 HYPERTENSION SCREENING 02/03/2014 SHERITA MICHEL DO 780.8 Diaphoresis Procedures Code Description [place] [address] THERAPUTIC INJ SQ/IM 11/05/2012 J1885 TORADOL INJ 11/05/2012 32252 MICRO ALBUMIN-IN HOUSE 11/05/2012 51506 A1C (IN-HOUSE) 11/05/2012 82906 THERAPUTIC INJ SQ/IM 12/10/2012 72858 CMP 12/10/2012 12974 LIPID PANEL 12/10/2012 17739 TESTOSTERONE TOTAL 12/10/2012 33123 CBC 12/10/2012 THYANA THYROID ANALYZER 12/10/2012 78142 INFLUENZA A & B (IN-HOUSE) 08/15/2013 20730 OXIMETRY 08/15/2013 62210 MICRO ALBUMIN-IN HOUSE 12/17/2013 34265 A1C (IN-HOUSE) 12/17/2013 47855 SLEEP STUDY ([facility]- SLEEP STUDY) 01/07/2014 RASHEEDA GONSALES 01/07/2014 2000F BLOOD PRESSURE CHECK 01/21/2014 48793 EKG, TRACING 01/21/2014 87071 ROUTINE VENIPUNCTURE 02/03/2014 81019 CMP 02/03/2014 96285 PSA TOTAL 02/03/2014 TESTFRTOT TESTOSTERONE FREE AND TOTAL MALE 02/03/2014 THYANA THYROID ANALYZER 02/03/2014 Results Test Result Range LITHIUM (ESKALITH(R)), SERUM - 04/09/18 14:02 LITHIUM 0.5 mmol/L 0.6-1.2 Encounters ACCT No. Visit Date/Time Discharge Status Pt. Type Provider Facility Loc./Unit Complaint [id number] 02/03/2014 11:40:00 02/03/2014 23:59:59 CLS Outpatient SHERITA MICHEL DO [id number] 01/21/2014 14:30:00 01/21/2014 23:59:59 CLS Outpatient SHERITA MICHEL DO [id number] 01/21/2014 12:44:00 01/21/2014 23:59:59 CLS Outpatient SHERITA MICHEL DO [id number] 01/07/2014 09:29:00 01/07/2014 23:59:59 CLS Outpatient DÍAZ EX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, MICHELE J [id number] 12/17/2013 11:32:00 12/17/2013 23:59:59 CLS Outpatient SHERITA MICHEL DO [id number] 08/15/2013 11:44:00 08/15/2013 23:59:59 CLS Outpatient MICHELE DÍAZ APRN [id number] 07/12/2013 10:25:00 07/12/2013 23:59:59 CLS Outpatient MICHELE DÍAZ APRN [id number] 06/07/2013 14:45:00 06/07/2013 23:59:59 CLS Outpatient SHERITA MICHEL DO [id number] 12/21/2012 14:58:00 Document Registration [id number] 12/10/2012 09:57:00 Document Registration [id number] 11/05/2012 09:41:00 Document Registration [id number] 06/25/2018 11:45:00 ACT Outpatient MITCH MEEKS APRN [id number] 04/09/2018 12:20:00 Document Registration
--- OUTSIDE RECORDS SUMMARY | 2018-06-25 13:08 | XMS REPORT ---
Author Author MICHELE DÍAZ [facility] Address [address] [place] [address] Care Team Providers Care Stripper Opaquer Name Role Phone MICHELE DÍAZ Unavailable PROBLEMS Type Condition ICD9-CM Code XPT04-XO Code Onset Dates Condition Status SNOMED Code Problem Bipolar 1 disorder, mixed F31.60 Active 86181660 Problem Type 2 diabetes mellitus without complication, without long-term current use of insulin E11.9 Active 911578055 ALLERGIES Substance Reaction Event Type Date Status SulfADIAZINE anaphylaxis Drug Allergy May, Active Morphine Sulfate hives Drug Allergy May, Active Penicillin anaphylaxis Drug Allergy May, Active E-mycin anaphylaxis Drug Allergy May, Active ENCOUNTERS Encounter Location Date Diagnosis [facility] [address] [facility] [id number] [id number] May, [facility] [place] [address] [facility] [id number] [id number] May, Gastroenteritis K52.9 [address] [id number] May, BMI 45.0-49.9, adult Z68.42 ; Bipolar 1 disorder, mixed F31.60 and Type 2 diabetes mellitus without complication, without long-term current use of insulin E11.[address] [facility] [address] [place] [address] [id number] [id number] Apr, [facility] [address] [facility] [id number] [id number] Apr, [address] [id number] [place] [id number] Apr, BMI 50.0-59.9, adult Z68.43 ; Type 2 diabetes mellitus without complication, without long-term current use of insulin E11.9 and Bipolar 1 disorder, mixed F31.60 [facility] [address] [facility] [id number] [id number] Apr, Bipolar 1 disorder, mixed F31.60 [facility] [address] [facility] [id number] [id number] Apr, BMI 50.0-59.9, adult Z68.43 ; Dehydration E86.0 and Bipolar 1 disorder, mixed F31.60 [facility] [address] [place] [address] [id number] [id number] Mar, BMI 50.0-59.9, adult Z68.43 ; Physical examination of employee Z02.89 ; Type 2 diabetes mellitus without complication, without long-term current use of insulin E11.9 and Chest discomfort R07.89 [facility] [address] [id number] [place] [address]- [address] Oct, [facility] [address] [id number] [place] [address]- 1276 Oct, [facility] [id number] [place] [address]- 1823 Feb, [facility] [id number] [place] [address]- 1881 Feb, [facility] [id number] [place] [address] 19592- 8697 Jan, [facility] [id number] [place] [address]- 3409 Jan, [facility] [address] [id number] [place] [address] 18077- 1841 Jan, [facility] [id number] [place] [address]06- 0499 Jan, [facility] [id number] [place] [address] 21308- 5896 Jan, [facility] [id number] [place] [address] 932[address]- 9875 Jan, [facility] [place] [facility] [address] [id number] [place] [address] 6224 Jan, [facility] [place] [facility] [address] [id number] [place] [address]- 7857 Jan, [facility] [place] [facility] [address] [id number] [place] [address]- 0499 Jan, [facility] [place] [facility] [address] [id number] [place] [address] 1962 Jan, [facility] [place] [facility] [address] [id number] [place] [address]- 6410 Jan, [facility] [place] [facility] [address] [id number] [place] [address]- 3971 Jan, [facility] [place] [facility] [address] [id number] [place] [address] 2929 Jan, [facility] [place] [facility] [address] [id number] [place] [address]- 9331 Dec, [facility] [place] [facility] [address] [id number] [place] [address]- 4833 Dec, [facility] [place] [facility] [address] [id number] [place] [address]- 8150 Dec, [facility] [place] [facility] [address] [id number] [place] [address]- 4435 Dec, [facility] [place] [facility] [address] [id number] [place] [address] 2729 Aug, [facility] [place] [facility] [address] [id number] [place] [address]- 2870 Aug, [facility] [place] [facility] [address] [id number] [place] [address]- 0149 Jul, [facility] [place] [facility] [address] [id number] [place] [address] 4095 Jul, [facility] [place] [facility] [address] [id number] [address] Jun, [facility] [address] [id number] [address] 96[address] Jun, [facility] [address] [address] 8[address] May, [facility] [address]65[address] [address] May, [facility] [address]65[address] [address] 0967 Jan, [facility] [address] [address] 3670 Dec, [facility] [id number] [place] [address] 09507- 4470 Dec, [facility] [id number] [place] [address] 98160- 6934 Dec, [facility] [address] [address] 4286 Dec, [facility] [address] [address] 4[address] November, [facility] [address] [address] Oct, IMMUNIZATIONS No Known Immunizations SOCIAL HISTORY Never Assessed REASON FOR VISIT Fever, vomiting, diarrhea, sore throat; pt believes he has the flu; symptoms since 06/02/18 - NASIMA Dowd, taking Tylenol and alternating with Ibuprofen; also taking Imodium PLAN OF CARE Activity Details Follow Up prn Reason: VITAL SIGNS Height 68 in 2018-06-05 Weight 316.8 lbs 2018-06-05 Temperature 98.7 degrees Fahrenheit 2018-06-05 Heart Rate 72 bpm 2018-06-05 Respiratory Rate 18 2018-06-05 BMI 48.16 kg/m2 2018-06-05 Blood pressure systolic 144 mmHg 2018-06-05 Blood pressure diastolic 86 mmHg 2018-06-05 MEDICATIONS Medication Instructions Dosage Frequency Start Date End Date Duration Status Sertraline HCl 100 MG Orally Once a day 0.5 tablet 24h Apr, Active Probiotic - as directed Active [place] Carbonate 150 MG Orally Once a day at HS 4 capsule Active Synjardy XR 10-1000 MG Orally Once a day 1 tablet with breakfast 24h 30 day(s) Active Trulicity 0.75 MG/0.5ML Subcutaneous once weekly as directed Apr, Active Seroquel 25 MG Orally at bedtime 1 tablet May, 30 day(s) Active RESULTS No Results PROCEDURES No Known [...]
[2018-06-25] MEDS ORDERED: QUET25TA73 (13:13)
[2018-06-25] MEDS ORDERED: DULA0.75 (13:13)
[2018-06-25] MEDS ORDERED: SERT100T8 (13:13)
[2018-06-25] MEDS ORDERED: LITH300C (13:13)
[2018-06-25] MEDS ORDERED: KETOROLAC 30 MG/ML VIAL IVP STA (13:42)
[2018-06-25] MEDS ORDERED: DEXAMETHASONE 10 MG/ML (DECADRON) 1 ML VIAL IV ONE (13:45)
[2018-06-25 14:03] LABS: BASOPHILS % (AUTO) 0 % (0-10); EOSINOPHILS # (AUTO) 0.2 10^3/uL (0.0-0.3); EOSINOPHILS % (AUTO) 2 % (0-10); HEMATOCRIT 45 % (40-54); HEMOGLOBIN 14.7 G/DL (13.3-17.7); LYMPHOCYTES # (AUTO) 1.6 X 10^3 (1.0-4.0); LYMPHOCYTES % (AUTO) 21 % (12-44); MEAN CORPUSCULAR HEMOGLOBIN 30 PG (25-34); MEAN CORPUSCULAR HGB CONC 33 G/DL (32-36); MEAN CORPUSCULAR VOLUME 92 FL (80-99); MEAN PLATELET VOLUME 12.8 FL (7.4-10.4); MONOCYTES # (AUTO) 0.5 X 10^3 (0.0-1.0); MONOCYTES % (AUTO) 6 % (0-12); NEUTROPHILS # (AUTO) 5.3 X 10^3 (1.8-7.8); NEUTROPHILS % (AUTO) 70 % (42-75); PLATELET COUNT 181 10^3/uL (130-400); RED BLOOD COUNT 4.86 10^6/uL (4.35-5.85); RED CELL DISTRIBUTION WIDTH 14.7 % (10.0-14.5); WHITE BLOOD COUNT 7.6 10^3/uL (4.3-11.0)
--- NOTE | 2018-06-25 14:03 | ED EENT ---
History of Present Illness General Chief Complaint: Facial Problems Stated Complaint: MOUTH INFECTION Nursing Triage Note: PT STATES HE HAS BAD TEETH AND FACE STARTED SWELLING A FEW DAYS AGO. PT WAS SENT HERE FROM [facility] TO RECIEVE IV ANTIBIOTICS. Source: patient Exam Limitations: no limitations History of Present Illness Date Seen by Provider: Jun 25, 2018 Time Seen by Provider: 13:10 Initial Comments Here with left sided facial swelling to the lower jaw onset a few days ago that has worsened. He has been trying to get into a dentist and was able to get into one today in [place]. Apparently that dentist briefly saw him and looked at an x-ray and believed he needed IV antibiotics. Patient was instructed to go to the ER for IV antibiotics. Patient denies fever, vomiting or swallowing problems. Does have swelling to the left side of the face. He is not taking anything for pain currently. He has not been on antibiotics. Timing/Duration: gradual, last week Severity: moderate Location: mouth, facial, dental Prearrival Treatment: no prearrival treatment Associated Symptoms: No cough, No ear drainage; facial pain/swelling; No fever , No nasal congestion/drainage, No sinus infection, No sore throat; tooth pain; No voice change Allergies and Home Medications Allergies Coded Allergies: Penicillins (Verified Allergy, Unknown, 06/25/18) Sulfa (Sulfonamide Antibiotics) (Verified Allergy, Unknown, 06/25/18) erythromycin base (Verified Allergy, Unknown, 06/25/18) morphine (Verified Allergy, Unknown, 06/25/18) Patient Home Medication List Home Medication List Reviewed: Yes Review of Systems Review of Systems Constitutional: see HPI; No chills, No fever Eyes: No Symptoms Reported Ears: No Symptoms Reported Nose: no symptoms reported Mouth: see HPI, pain, swelling; denies purulent discharge Throat: denies hoarse, denies muffled, denies painful swallowing Respiratory: No cough, No short of breath Cardiovascular: No chest pain, No palpitations Gastrointestinal: No abdominal pain, No nausea, No vomiting Musculoskeletal: no symptoms reported Skin: no symptoms reported Neurological: No Symptoms Reported All Other Systems Reviewed Negative Unless Noted: Yes Past Kwjptol-Ncpgud-Ouqtbj Hx Past Med/Social Hx: Reviewed Nursing Past Med/Soc Hx Patient Social History Alcohol Use: Denies Use Recreational Drug Use: No Smoking Status: Never a Smoker Recent Foreign Travel: No Contact w/Someone Who Travel: No Recent Infectious Disease Expo: No Recent Hopitalizations: No Physical Abuse: No Sexual Abuse: No Immunizations Up To Date Tetanus Booster (TDap): Unknown PED Vaccines UTD: Yes Seasonal Allergies Seasonal Allergies: No Past Medical History Surgeries: Yes Appendectomy, Orthopedic Respiratory: No Cardiac: No Neurological: No Genitourinary: No Gastrointestinal: No Musculoskeletal: No Endocrine: Yes Diabetes, Non-Insulin dep HEENT: No Cancer: No Integumentary: No Blood Disorders: No Family Medical History Reviewed Nursing Family Hx No Pertinent Family Hx Physical Exam Vital Signs Vital Signs - First Documented 06/25/18 13:06 Temp 97.1 Pulse 87 Resp 20 B/P (MAP) 150/77 (101) Pulse Ox 100 O2 Delivery Room Air Height, Weight, BMI Height: 5'8.00" Weight: 200lbs. oz. [id number]; BMI Method:Stated General Appearance: WD/WN, no apparent distress Ears: bilateral ear auricle normal, bilateral ear canal normal, bilateral ear TM normal Nose: normal inspection; No active bleeding Mouth/Throat: mandibular swelling; No pharynx swelling, No pharynx tenderness, No tongue swollen, No trismus, No uvula swelling Neck: full range of motion, supple; No lymphadenopathy (R), No lymphadenopathy (L) Cardiovascular: regular rate, rhythm, no murmur Respiratory: lungs clear, normal breath sounds Gastrointestinal: non tender, soft Neurologic/Psychiatric: alert, oriented x 3 Skin: warm/dry, other (erythema, warmth and swelling to the lateral aspect of the face on the lower jaw on the left.) Progress/Results/Core Measures Results/Orders Lab Results Laboratory Tests Test 06/25/18 13:54 06/25/18 14:10 Range/Units White Blood Count 7.6 4.3-11.0 10^3/uL Red Blood Count 4.86 4.35-5.85 10^6/uL Hemoglobin 14.7 13.3-17.7 G/DL Hematocrit 45 40-54 % Mean Corpuscular Volume 92 80-99 FL Mean Corpuscular Hemoglobin 30 25-34 PG Mean Corpuscular Hemoglobin Concent 33 32-36 G/DL Red Cell Distribution Width 14.7 H 10.0-14.5 % Platelet Count 181 130-400 10^3/uL Mean Platelet Volume 12.8 H 7.4-10.4 FL Neutrophils (%) (Auto) 70 42-75 % Lymphocytes (%) (Auto) 21 12-44 % Monocytes (%) (Auto) 6 0-12 % Eosinophils (%) (Auto) 2 0-10 % Basophils (%) (Auto) 0 0-10 % Neutrophils # (Auto) 5.3 1.8-7.8 X 10^3 Lymphocytes # (Auto) 1.6 1.0-4.0 X 10^3 Monocytes # (Auto) 0.5 0.0-1.0 X 10^3 Eosinophils # (Auto) 0.2 0.0-0.3 10^3/uL Basophils # (Auto) 0.0 0.0-0.1 10^3/uL Sodium Level 141 135-145 MMOL/L Potassium Level 3.9 3.6-5.0 MMOL/L Chloride Level 106 98-107 MMOL/L Carbon Dioxide Level 19 L 21-32 MMOL/L Anion Gap 16 H 5-14 MMOL/L Blood Urea Nitrogen 4 L 7-18 MG/DL Creatinine 0.65 0.60-1.30 MG/DL Estimat Glomerular Filtration Rate > 60 BUN/Creatinine Ratio 6 Glucose Level 62 L 70-105 MG/DL Calcium Level 9.1 8.5-10.1 MG/DL Corrected Calcium 9.0 8.5-10.1 MG/DL Total Bilirubin 1.5 H 0.1-1.0 MG/DL Aspartate Amino Transf (AST/SGOT) 13 5-34 U/L Alanine Aminotransferase (ALT/SGPT) 12 0-55 U/L Alkaline Phosphatase 53 40-136 U/L C-Reactive Protein High Sensitivity 3.40 H 0.00-0.50 MG/DL Total Protein 6.5 6.4-8.2 GM/DL Albumin 4.1 3.2-4.5 GM/DL My Orders Orders - JAZMIN BUSTOS MD Cbc With Automated Diff (06/25/18 13:42) Comprehensive Metabolic Panel (06/25/18 13:42) Hs C Reactive Protein (06/25/18 13:42) Saline Lock/Iv-Start (06/25/18 13:42) Ketorolac Injection (Toradol Injection) (06/25/18 13:42) Dexamethasone Injection (Decadron Inject (06/25/18 13:45) Ceftriaxone For Iv Use (Rocephin For I (06/25/18 15:15) Hydrocodone/Apap 7.5/325 Tab (Lortab 7. (06/25/18 15:06) Medications Given in ED Current Medications Medications Dose Ordered Sig/Caleb Route Start Time Stop Time Status Last Admin Dose Admin Ceftriaxone Sodium 1000 mg/ Sodium Chloride 60 ml @ 100 mls/hr ONCE ONCE IV 06/25/18 15:15 06/25/18 15:50 DC 06/25/18 15:24 100 MLS/HR Dexamethasone Sodium Phosphate 10 mg ONCE ONCE IV 06/25/18 13:45 06/25/18 13:46 DC 06/25/18 14:08 10 MG Vital Signs/I&O 06/25/18 13:06 Temp 97.1 Pulse 87 Resp 20 B/P (MAP) 150/77 (101) Pulse Ox 100 O2 Delivery Room Air Blood Pressure Mean: 101 Progress Progress Note : Progress Note Seen and evaluated. Due to concerns for the dentist in the large amount of facial swelling, we will check some basic labs to evaluate for systemic response. Patient agrees. IV, labs, Toradol 30 mg IV, Decadron 10 mg IV ordered. Patient does have allergy to morphine so we will increase pain medicines as tolerated and needed. Monitor patient. 1530: Rocephin 1 g IV. Hydrocodone 7.5 mg one tab by mouth. CRP is elevated but white count is okay. I do believe that this can be treated outpatient with an initial dose of IV antibiotics. All this was discussed with the patient and family who agree. 1604: Overall feeling much better. Discharged home with return precautions. Patient verbalize understanding instructions and agreement with plan. Departure Impression Primary Impression: Facial swelling Additional Impression: Dental abscess Disposition: 01 HOME, SELF-CARE Condition: Improved Departure-Patient Inst. Decision time for Depature: 16:06 Patient Instructions: Cellulitis (Skin Infection), Adult (DC), Tooth Abscess ( DC) Add. Discharge Instructions: All discharge instructions reviewed with patient and/or family. Voiced understanding. Take medications as directed. Follow-up with your DrKostas in a few days for recheck. Follow-up with the dentist for recheck and further evaluation. Return for worse pain, fever, vomiting, weakness, breathing problems or other concerns as needed. You may take the pain pills. If you're not taking the prescribed pain medicine, you may take Tylenol/acetaminophen 1000 mg every 8 hours as needed for pain. Do not take both at the same time as they both have acetaminophen in them. Do not exceed 4000 mg of acetaminophen daily. Scripts Hydrocodone Bit/Acetaminophen (Hydrocodone/Acetaminophen 5/325mg Tablet) 1 Tab Tab 1-2 EACH PO Q6H PRN for PAIN-MODERATE MDD 10, #12 TAB 0 Refills Prov: JAZMIN BUSTOS MD 06/25/18 Cephalexin (Cephalexin) 500 Mg Tablet 500 MG PO QID, #28 TAB 0 Refills Prov: JAZMIN BUSTOS MD 06/25/18 JAZMIN BUSTOS MD Jun 25, 2018 14:03
[2018-06-25 14:43] LABS: ALANINE AMINOTRANSFERASE 12 U/L (0-55); ALBUMIN 4.1 GM/DL (3.2-4.5); ALKALINE PHOSPHATASE 53 U/L (40-136); BILIRUBIN,TOTAL 1.5 MG/DL (0.1-1.0); BUN/CREATININE RATIO 6; CALCIUM 9.1 MG/DL (8.5-10.1); CARBON DIOXIDE 19 MMOL/L (21-32); CHLORIDE 106 MMOL/L (98-107); CREATININE SERUM 0.65 MG/DL (0.60-1.30); GFR ESTIMATED > 60; GLUCOSE 62 MG/DL (70-105); POTASSIUM 3.9 MMOL/L (3.6-5.0); SODIUM 141 MMOL/L (135-145); TOTAL PROTEIN 6.5 GM/DL (6.4-8.2)
[2018-06-25] MEDS ORDERED: HYDROcodone/APAP 7.5 MG/325 MG (LORTAB, LORCET PLUS) TABLET PO STA (15:06)
[2018-06-25] MEDS ORDERED: cefTRIAXone FOR IV USE 1,000 MG in NS (IVPB) 50 ML IV ONE (15:15)
[2018-06-25] MEDS ORDERED: CEPH500T PO (16:09)
[2018-06-25] MEDS ORDERED: ACHD5005 PO (16:09)
[2018-06-25 16:19] VITALS: BP 136/81
== END 2018-06-25 16:20 | disposition home or self-care (01) ==
LOC: ER 13:02
DX: K04.7 Periapical abscess without sinus (principal); E11.9 Type 2 diabetes mellitus without complications; Z88.0 Allergy status to penicillin; Z88.2 Allergy status to sulfonamides; Z88.5 Allergy status to narcotic agent; Z90.49 Acquired absence of other specified parts of digestive tract
CPT/HCPCS: 36415; 80053; 85025; 86141